=== PATIENT | female | born 1965 | race Caucasian/White ===

== ENCOUNTER 2019-03-04 17:07 | Emergency (ER) | payer BC, OTHER ==
--- OUTSIDE RECORDS SUMMARY | 2019-03-04 17:14 | XMS REPORT | Continuity of Care Document ---
:1965 External Reference #:[id number] Author Name Irma Pena PA (transmitted by agent of provider Chalino Thakkar) Address [address] [facility], [address] [place] [address] Care Team Providers Name Role Phone [facility] - Care Team Information Laboratory Supervisor [phone] [facility], Care Team Information Laboratory Supervisor Cardiovascular Bob Suarez M.D. - Rheumatology Care Team Information Laboratory Supervisor [phone] [facility] - Otolaryngology Care Team Information Laboratory Supervisor [phone] [facility] - Care Team Information Laboratory Supervisor Nutrition, Education Problems Active Problems Provider Date Chronic allergic conjunctivitis Chalino Thakkar M.D. Onset: 05/31/2012 Benign essential hypertension Chalino Thakkar M.D. Onset: 05/31/2012 External hordeolum Nataliia Gonzalez MD Onset: 11/10/2013 Headache Nataliia Gonzalez MD Onset: 11/10/2013 Multiple joint pain Nataliia Gonzalez MD Onset: 11/10/2013 Neck pain Nataliia Gonzalez MD Onset: 11/10/2013 Allergic rhinitis Chalino Thakkar M.D. Onset: 06/30/2014 Joint pain Chalino Thakkar M.D. Onset: 01/15/2015 Nonruptured cerebral aneurysm Chailno Thakkar M.D. Onset: 02/06/2016 Social History Type Date Description Comments Sex Unknown Tobacco Use Reviewed: 02/26/19 Denies Cigarette Use Smoking Status Reviewed: 02/28/19 Denies Cigarette Use ETOH Use Drinks Alcohol Occasionally Recreational Drug Use Denies Drug Use Tobacco Use Start: Unknown Non Smoker Allergies, Adverse Reactions, Alerts Active Allergies Reaction Severity Comments Date Penicillin 03/01/2003 Sulfa Thimerisol Or Contact Solution Made 03/06/2003 Eyes Red/Irritated Medications Active Medications SIG Qnty Indications Ordering Date Provider Benzonatate 1 cap by mouth 90caps J06.9 Chalino Thakkar, 02/26/2019 200mg three times a day M.D. Capsules as needed cough Potassium Chloride Take 2 Tablets By 360tabs I10 Chalino Thakkar, 2018 ER Mouth Twice Daily M.D. 10Meq Tablets ER For Potassium Replacement E87.6 Triamterene/Hydrochlorothiazide Take 1 Capsule By 90caps I10 Ariane, 03/2018 37.5-25mg Mouth Every Morning Chalino, Capsules For High Blood M.D. Pressure(Replaces Chlorthalidone) Multivitamin Adult Unknown 03/22/2018 Chewtabs Calcium, Vit D Viactive Unknown 02/05/2016 Ibuprofen taking 2 tab to 4 otc Unknown 200mg Tablets tab with a snack for your pain. as Needed History Medications Baclofen take 1 tablet by 30tabs Jorge L Kent, 11/01/2018 - 10mg mouth at night D.O. 12/07/2018 Tablets for muscle spasms Tramadol HCL 1 by mouth every 14tabs M54.5 Jorge L Kent, 11/01/2018 - 50mg 6 hours as D.O. 12/07/2018 Tablets needed for pain M79.604 PT For Low Back please evaluate and M54.5 Chalino Thakkar, 09/05/2018 - Pain treat, modalities as M.D. 11/04/2018 needed, instruct in hep Immunizations CPT Code Status Date Vaccine Lot # [id number] Given 12/08/2018 Shingrix Zoster (Shingles) Vaccine (HZV) [id number] Recomb,Subnit,Adjuvanted 89867 Given 12/08/2018 MMR Virus Immunization [id number] 21479 Given 11/01/2018 Influenza Virus Vaccine, Quadrivalent, Split, [id number] Preservative Free 17632 Given 03/23/2018 Td Immunization [id number] 94152 Given 12/14/2012 Flu, Split Virus 3Yrs 88862 Given 11/13/2011 Flu, Split Virus 3Yrs 50515 Given 06/05/2009 Hep A, Adult [id number] 00540 Given 12/05/2008 Hep A, Adult [id number] 21501 Given 08/11/2008 Adacel or Boostrix, TDaP [id number] 03020 Given 01/04/2003 Flu, Split Virus 3Yrs 00450 Given 03/06/1998 Td Immunization Vital Signs Date Vital Result Comment 02/26/2019 10:57am BP Systolic 120 mmHg BP Diastolic 80 mmHg Body Temperature 98.2 F Height 63 inches 5'3" Weight 194.00 lb BMI (Body Mass Index) 34.4 kg/m2 12/08/2018 3:31pm BP Systolic 116 mmHg BP Diastolic 82 mmHg Results Test Acquired Date Facility Test Result H/L Range Note Laboratory test 02/26/2019 In House Culture Throat negative finding Rapid Screen Culture Throat negative Culture Urine Inhouse 11/01/2018 In House Colonies 11/23 1 Urine Micro Inhouse 11/01/2018 In House Ua WBC 1-2 Ua RBC 0-1 Ua Casts - Ua Epi 1-2 Ua Other - Ua Glucose - Ua Bilirubin - Ua Ketones - Ua Specific Quimby 1.005 Ua Blood - Ua PH 6.0 Ua Protein - Ua Urobilinogen - Ua Nitrite - Ua Leukocytes - 1 void, clear, light yellow Procedures Date Code Description Status 11/01/2018 54519 Omt 3 To 4 Body Regions Involved Completed 08/06/2018 [id number] Mammogram Completed 05/20/2013 [id number] Colonoscopy Completed Medical Devices Description No Information Available Encounters Type Date Location Provider Dx Diagnosis Office Visit 02/26/2019 Main Office Irma Pena PA J06.9 Acute upper 10:15a respiratory infection, unspecified R07.0 Pain in throat Z68.34 Body mass index (BMI) 34.0-34.9, adult Office Visit 12/08/2018 3:00p Main Office Jorge L Kent D.O. M54.5 Low back pain M79.604 Pain in right leg Z23 Encounter for immunization Office Visit 11/01/2018 3:00p Main Office Jorge L Kent D.O. M54.5 Low back pain M79.604 Pain in right leg I10 Essential (primary) hypertension R35.0 Frequency of micturition G47.30 Sleep apnea, unspecified Z23 Encounter for immunization M99.03 Segmental and somatic dysfunction of lumbar region M99.04 Segmental and somatic dysfunction of sacral region M99.05 Segmental and somatic dysfunction of pelvic region Assessments Date Code Description Provider 02/26/2019 J06.9 Acute upper respiratory infection, Irma Pena PA unspecified 02/26/2019 R07.0 Pain in throat Irma Pena PA 02/26/2019 J06.9 Acute upper respiratory infection, Chalino Thakkar M.D. unspecified 02/26/2019 Z68.34 Body mass index (BMI) 34.0-34.9, adult Irma Pena PA 12/08/2018 M54.5 Low back pain Sopchak, Jorge L, D.O. 12/08/2018 M79.604 Pain in right leg Sopchak, Jorge L, D.O. 12/08/2018 Z23 Encounter for immunization Sopchak, Jorge L, D.O. 11/01/2018 M54.5 Low back pain Sopchak, Jorge L, D.O. 11/01/2018 M79.604 Pain in right leg Sopchak, Jorge L, D.O. 11/01/2018 I10 Essential (primary) hypertension Sopchak, Jorge L, D.O. 11/01/2018 R35.0 Frequency of micturition Sopchak, Jorge L, D.O. 11/01/2018 G47.30 Sleep apnea, unspecified Sopchak, Jorge L, D.O. 11/01/2018 Z23 Encounter for immunization Sopchak, Jorge L, D.O. 11/01/2018 M99.03 Segmental and somatic dysfunction of lumbar Sopchak, Jorge L , D.O. region 11/01/2018 M99.04 Segmental and somatic dysfunction of sacral Sopchak, Jorge L , D.O. region 11/01/2018 M99.05 Segmental and somatic dysfunction of pelvic Sopchak, Jorge L , D.O. region Plan of Treatment Future Appointment(s):03/25/2019 9:45 am - Chalino Thakkar M.D. at [id number]/26/2019 - Irma Pena PAJ06.9 Acute upper respiratory infection, unspecifiedNew Medication:Benzonatate 200 mg - 1 cap by mouth three times a day as needed coughComments:Viral URI. Rx for tessalon. Recommended OTC cold meds, rest, fluids, NSAIDs as needed. Recheck if sxnot improving.R07.0 Pain in throatComments:Rapid strep negative, will culture. Comfort measures recommended.Z68.34 Body mass index (BMI) 34.0-34.9, adult Functional Status Description No Information Available Mental Status Description No Information Available Referrals Description No Information Available
--- NOTE | 2019-03-04 17:18 | UC ---
FLU HPI - HPI Summary HPI Summary: 53yo female presenting with sore throat x1 week. Patient states she has had intermittent dry cough and fevers as well. Denies sob and difficulty breathing. States she thought she was getting better until earlier today when she noticed she began to feel warm after skipping a dose of ibuprofen. States she took her temperature at home and it was 101. States her throat has consistently felt the same without improvement. Denies nasal congestion and ear pain. She was seen on 02/26/19 for sore throat with a negative rapid strep test. She notes intermittent chills and body aches as well. Denies nausea and vomiting. - History of Current Complaint Stated Complaint: FEVER, HEADACHE Hx Obtained From: Patient Hx Last Menstrual Period: 11/08/11 - Allergy/Home Medications Allergies/Adverse Reactions: Allergies Allergy/AdvReac Type Severity Reaction Status Date / Time Penicillins Allergy Unknown Verified 03/04/19 17:24 Reaction Details Sulfa (Sulfonamide Allergy Eyes Verified 03/04/19 17:24 Antibiotics) Itchy/Swollen/Red/Watery Home Medications: Home Medications Benzonatate CAP* [Tessalon 100 MG CAP*] 100 mg PO TID PRN 03/04/19 [History Confirmed 03/04/19] Cyanocobalamin TAB* [Vitamin B12 TAB*] 1,000 mcg PO DAILY 03/04/19 [History Confirmed 03/04/19] Ibuprofen TAB* [Advil TAB*] 400 mg PO Q6H PRN 03/04/19 [History Confirmed ] Ibuprofen/Diphenhydramine Cit [Advil Pm Caplet] 1 each PO QPM 03/04/19 [History Confirmed 03/04/19] Phenylephrine/Dm/Acetaminop/GG [Vicks Dayquil Severe Cold-Flu] 1 each PO Q6H 12/12 [History Confirmed 03/04/19] Triamterene/HCTZ 37.5-25 MG* [Dyazide CAP*] 1 cap PO DAILY 03/04/19 [History Confirmed 03/04/19] PMH/Surg Hx/FS Hx/Imm Hx Other History Of: Negative For: HIV, Hepatitis B, Hepatitis C - Surgical History Surgical History: Yes Surgery Procedure, Year, and Place: c section - Family History Known Family History: Negative: Seizure Disorder, Blood Disorder Family History: NON CONTRIBUTORY - Social History Alcohol Use: Occasionally Substance Use Type: None Smoking Status (MU): Never Smoked Tobacco - Immunization History Most Recent Influenza Vaccination: fall Most Recent Tetanus Shot: UTD Review of Systems All Other Systems Reviewed And Are Negative: Yes Constitutional: Positive: Fever - 101 today, Chills ENT: Positive: Sore Throat. Negative: Ear Ache, Sinus Congestion Respiratory: Positive: Negative Cardiovascular: Positive: Negative Gastrointestinal: Positive: Negative Musculoskeletal: Positive: Myalgia Neurological: Positive: Headache Physical Exam Triage Information Reviewed: Yes Appearance: Well-Appearing, No Pain Distress, Well-Nourished Vital Signs: Vital Signs (72 hours) 03/04/19 17:16 Temperature 98.1 F Pulse Rate 70 Respiratory 16 Rate Blood Pressure 150/84 (mmHg) O2 Sat by Pulse 97 Oximetry Lab Results 03/04/19 03/04/19 Range/Units 17:37 17:39 Influenza A (Rapid) Negative (Negative) Influenza B (Rapid) Negative (Negative) Group A Strep Rapid Negative (Negative) Vital Signs Reviewed: Yes Eyes: Positive: Conjunctiva Clear ENT: Positive: Hearing grossly normal, Pharyngeal erythema, Uvula midline. Negative: Nasal congestion, Tonsillar swelling, Tonsillar exudate, Trismus, Muffled voice, Hoarse voice Neck exam: Normal Neck: Positive: Supple, Nontender, No Lymphadenopathy Respiratory Exam: Normal Respiratory: Positive: Lungs clear, Normal breath sounds, No respiratory distress, No accessory muscle use. Negative: Crackles, Rhonchi, Stridor, Wheezing Cardiovascular Exam: Normal Cardiovascular: Positive: RRR, No Murmur. Negative: Tachycardia Neurological: Positive: Alert Psychological: Positive: Age Appropriate Behavior Skin Exam: Normal Flu Course/Dx - Course Course Of Treatment: Negative rapid strep and flu test. Patient was concerned for "other infection. " I informed the patient that I would send the throat swab for culture and that she will be notified with any changes in treatment that need to be made based on the results. I instructed to continue the symptomatic treatment and follow-up with PCP if symptoms persist or go to ED with any new or worsening symptoms. Patient voiced understanding and agreed with the treatment plan. - Differential Dx/Diagnosis Differential Diagnosis/HQI/PQRI: Influenza, Upper Respiratory Infection Provider Diagnosis: Pharyngitis, Flu-like symptoms Discharge ED - Sign-Out/Discharge Documenting (check all that apply): Patient Departure All imaging exams completed and their final reports reviewed: No Studies - Discharge Plan Condition: Stable Disposition: HOME Patient Education Materials: Pharyngitis (ED), Viral Syndrome (ED) Referrals: Chalino Thakkar MD [Primary Care Provider] - If Needed Additional Instructions: As discussed, you tested negative for strep throat and the flu today. Your throat swab has been sent for culture and you will be notified with any positive results warranting change in treatment. You may continue to take ibuprofen and/or tylenol as directed for fever and pain relief. You may use over the counter throat sprays, lozenges, tea with honey, and salt water gargles for symptomatic relief. Get plenty of rest and increase fluid intake. Follow up with your primary care provider if symptoms do not resolve within 7 days. - Billing Disposition and Condition Condition: STABLE Disposition: Home
[2019-03-04 17:23] VITALS: BP 150/84
[2019-03-04 17:50] LABS: Influenza A Molecular NEGATIVE (Negative); Influenza B Molecular NEGATIVE (Negative)
== END 2019-03-04 18:07 | disposition home or self-care (01) ==
LOC: UCEAST 17:07
DX: J02.9 Acute pharyngitis, unspecified (principal); R05 Cough; R50.9 Fever, unspecified; M79.10 Myalgia, unspecified site; R51 Headache; Z88.0 Allergy status to penicillin; Z88.2 Allergy status to sulfonamides
CPT/HCPCS: 87070; 87651; 99211; G0463

== ENCOUNTER 2022-08-14 12:43 | Observation (INO) ==
[2022-08-14 15:14] LABS: ABS Basophils 0.1 10^3/uL (0.0-0.1); ABS Eosinophils 0.1 10^3/uL (0.0-0.5); ABS Lymphocytes 2.9 10^3/uL (1.0-4.8); ABS Nucleated RBC 0.01 10^3/ul; Eosinophil % 0.5 %; Hematocrit 41.6 % (35-45); Hemoglobin 14.2 g/dL (11.5-14.3); Lymphocyte % 20.6 %; Mean Corpuscular Hemoglobin 31.4 pg (27-33); Mean Corpuscular Hgb Conc 34.2 g/dL (31-36); Mean Corpuscular Volume 91.6 fL (80-97); Mean Platelet Volume 6.5 fL (7.5-11.2); Nucleated Red Blood Cells % 0.1 /100 WBC (0.0-0.4); Platelet Count 388 10^3/uL (150-450); Red Blood Count 4.54 10^6/uL (3.63-4.92); Red Cell Distribution Width 14.3 % (12-17)
[2022-08-14 15:53] LABS: INR 1.02 (0.88-1.18)
[2022-08-14 15:56] LABS: Albumin 4.3 g/dL (3.2-5.2); Albumin/Globulin Ratio 1.5 (1-3); Calcium 9.6 mg/dL (8.6-10.3); Creatinine, Serum 0.66 mg/dL (0.51-0.95); Globulin 2.8 g/dL (2-4); Potassium 3.3 mmol/L (3.5-5.0); Total Bilirubin 0.4 mg/dL (0.2-1.0); Total Protein 7.1 g/dL (6.4-8.9)
[2022-08-14] MEDS ORDERED: Potassium Chlor 20 meq TAB.ER PO ONE (17:44)
[2022-08-15 06:20] LABS: Hematocrit 43.2 % (35-45); Hemoglobin 14.9 g/dL (11.5-14.3); Mean Corpuscular Hemoglobin 31.3 pg (27-33); Mean Corpuscular Hgb Conc 34.4 g/dL (31-36); Mean Corpuscular Volume 90.8 fL (80-97); Mean Platelet Volume 6.6 fL (7.5-11.2); Platelet Count 411 10^3/uL (150-450); Red Blood Count 4.75 10^6/uL (3.63-4.92); Red Cell Distribution Width 14.2 % (12-17); White Blood Count 11.3 10^3/uL (3.8-11.8)
[2022-08-15 06:44] LABS: Calcium 9.9 mg/dL (8.6-10.3); Creatinine, Serum 0.58 mg/dL (0.51-0.95); Magnesium 2.1 mg/dL (1.9-2.7); Potassium 3.8 mmol/L (3.5-5.0); eGFR CKD-EPI 104.2 (>60)
[2022-08-15] MEDS ORDERED: Potassium Chlor 10 meq TAB PO SCH (09:00)
[2022-08-15 09:46] VITALS: BP 133/70
== END 2022-08-15 11:00 | disposition home or self-care (01) ==
LOC: ED 12:43 → EDHOLD 12:43 → MEDTELE 21:08
PROVIDERS: ADMIT Internal Medicine; ATTEND Internal Medicine